=== PATIENT | male | born 1950 | race Caucasian/White ===

== ENCOUNTER 2023-06-08 08:43 | Outpatient (CLI) | payer MEDICARE, OTHER, SELFPAY ==
[2023-06-08 12:18] LABS: Basophils Percent Auto 0.6 % (0.2-1.2); Eosinophils Absolute Auto 0.1 K/mm3 (0-0.3); Eosinophils Percent Auto 1.9 % (0-4.4); Hematocrit 47.1 % (42.0-52.0); Hemoglobin 15.3 g/dL (14.0-18.0); Immature Granulocyte Absolute 0.02 K/mm3 (0.00-0.031); Immature Granulocyte Percent A 0.3 % (0-0.5); Lymphocytes Absolute Auto 2.08 K/mm3 (0.9-3.2); Lymphocytes Percent Auto 30.1 % (18.3-44.2); Mean Corpuscular HGB Conc 32.5 g/dl (32-36); Mean Corpuscular Hemoglobin 32.1 pg (26-34); Mean Corpuscular Volume 98.7 fl (80-100); Mean Platelet Volume 9.9 fl (7.4-10.4); Monocytes Absolute Auto 0.7 K/mm3 (0.1-0.6); Monocytes Percent Auto 9.8 % (2.6-8.5); Neutrophils Percent Auto 57.3 % (45.5-73.1); Platelet Count Result 280 k/mm3 (150-375); Red Blood Count 4.77 M/mm3 (4.6-6.20); Red Cell Distribution Width 12.2 % (11.5-14.5); White Blood Count 6.9 K/mm3 (4.5-10.0)
[2023-06-09 00:07] LABS: Alanine Aminotransferase 34 U/L (6-50); Albumin Level 4.2 g/dL (3.5-5.1); Alkaline Phosphatase 71 U/L (38-126); Anion Gap 6 mmol/L (4-12); Aspartate Amino Transferase 38 U/L (17-59); Bilirubin,Total 0.8 mg/dL (0.2-1.3); Blood Urea Nitrogen 17 mg/dL (9-20); Calcium 9.4 mg/dL (8.4-10.2); Carbon Dioxide 28 mmol/L (22-30); Chloride 105 mmol/L (98-107); Cholesterol 123 mg/dL (0-200); Estimated Glomerular Filt Rate > 60; Glucose 98 mg/dL (65-110); HDL Direct 53 mg/dL; Potassium 4.4 mmol/L (3.4-5.0); Sodium 139 mmol/L (137-145); Triglycerides 67 mg/dL (<150)
[2023-06-09 00:22] LABS: LDL Cholesterol Direct 55 mg/dL
[2023-06-09 00:34] LABS: Hemoglobin A1C 5.2 % (<5.7)
[2023-06-09 00:39] LABS: Prostate Specific Antigen 0.7 ng/mL (< OR = 4.0)
== END 2023-06-08 08:44 | disposition home or self-care (01) ==
PROVIDERS: PCP Family Medicine; Visit Provider Family Medicine
DX: Z12.5 Encounter for screening for malignant neoplasm of prostate (principal); R73.9 Hyperglycemia, unspecified; R53.83 Other fatigue; I63.9 Cerebral infarction, unspecified; Z13.220 Encounter for screening for lipoid disorders; Z13.228 Encounter for screening for other metabolic disorders
CPT/HCPCS: 36415; 80053; 80061; 83036; 84153; 85025; G0103

== ENCOUNTER → 2023-10-03 11:14 | Outpatient (REF) | payer MEDICARE, OTHER, SELFPAY | LOC: ANHLAB 11:14 | PROVIDERS: PCP Family Medicine; Visit Provider Plastic Surgery | DX: C44.311 Basal cell carcinoma of skin of nose (principal) | CPT/HCPCS: 88305 ==

== ENCOUNTER 2023-11-30 13:09 | Emergency (ER) | payer MEDICARE, OTHER, SELFPAY ==
[2023-11-30 13:24] VITALS: BP 139/71; PULSE 62; RESP 18; TEMP 36.6; O2SAT 100
--- NOTE | 2023-11-30 13:40 | ED.EXTPRO ---
HPI - Extremity Problem General Chief complaint: Extremity Injury, Lower Stated complaint: left leg pain Time Seen by Provider: 11/30/23 13:40 Source: patient and RN notes reviewed Mode of arrival: ambulatory Limitations: no limitations History of Present Illness HPI Narrative: 73-year-old male presents with concern for flare-up of sciatica. Reports 3 week history of left sciatic pain radiating to the hip and down the left leg. He reports he has had issues with this in the past. Three weeks ago he stepped awkwardly with the left lower extremity and began having this pain. He denies any direct injury or trauma. He reports he uses a cane at baseline after he had a stroke. He reports he has been alternating Motrin and Aleve with some temporary relief and he has been seeing a chiropractor. He denies loss of bowel or bladder function, perianal anesthesia, abdominal pain, new weakness in any extremity MD Complaint: other (left hip and sciatic pain) Related Data Home Medications Medication Instructions Recorded Confirmed aspirin 81 mg tablet,delayed 81 mg DIRECTED 11/30/23 11/30/23 release (Adult Low Dose Aspirin) Allergies Allergy/AdvReac Type Severity Reaction Status Date / Time bee venom protein (honey bee) Allergy Severe Anaphylactic Verified 10/11/23 11:45 Shock neomycin Allergy Severe swelling Verified 10/11/23 11:45 and burn Review of Systems Review of Systems: CONSTITUTIONAL: Denies malaise, chills, sweats, or fever. CARDIOVASCULAR: Denies chest pain, palpitations, or edema. RESPIRATORY: Denies cough or dyspnea. SKIN: Denies rash or itching, bruising, redness, swelling. MUSCULOSKELETAL: Reports left sciatic, hip pain NEUROLOGIC: Denies numbness, weakness All systems reviewed & are unremarkable except as noted in HPI and below PMFSH Surgical History Surgical History History of laparoscopic cholecystectomy Family History Family History Father Heart disease Mother Breast cancer Sibling Cancer of appendix Daughter Breast cancer Alcoholism Social History Social History Social History: Caffeine- 3 cups of tea daily Smoking status: Current some day smoker Tobacco type: cigars Alcohol intake: current Drinks per week: 1 Substance use: never Do You Feel Safe in your Home?: Yes Lack of Transportation: No Lack of Food: Never True Current Housing: I Have Housing Concerned About Future Housing: No Difficulty Paying Gas/Electric Bills: No Difficulty Paying for Meds: No Currently Unemployed: No Education: High School Diploma/GED Difficulty w/ Childcare or Family Care: No Living arrangements: with family Occupation/Education: retired Spiritual care concerns: No Agree to blood products: Yes Comments At time of signature, agree with nursing past medical, surgical, social and family history. There is no relevant family history pertinent to the presenting complaint Exam Narrative: GENERAL: Well-appearing, well-nourished, and in no acute distress. HEAD: Normocephalic, atraumatic. EYES: PERRLA and EOMI. NECK: Supple. No lymphadenopathy. CHEST: Clear to auscultation. No respiratory distress. HEART: Regular rate and rhythm. Distal pulses palpable and equal, cap refill <3 seconds MUSCULOSKELETAL: Baseline range of motion and strength in all extremities; baseline strength with hip flexion and extension, dorsiflexion and extension, knee flexion and extension, plantar flexion and extension. Baseline sensation in dermatomal distributions with sensitivity to light touch and pain. No midline back tenderness to palpation. No paraspinal tenderness. Transfers from sitting to standing. SKIN: Warm, dry, no rash. NEURO: No focal deficits. Alert and oriented x3. Reflexes intact. Normal gait. PSYCH: Normal mo
== END 2023-11-30 13:54 | disposition home or self-care (01) ==
PROVIDERS: Emergency Provider Nurse Practitioner; PCP Family Medicine
DX: M54.50 Low back pain, unspecified (principal); F17.290 Nicotine dependence, other tobacco product, uncomplicated; Z86.73 Personal history of transient ischemic attack (TIA), and cerebral infarction without residual deficits; Z79.82 Long term (current) use of aspirin
CPT/HCPCS: 99213; G0463

== ENCOUNTER 2024-01-23 07:43 | Outpatient (CLI) | payer MEDICARE, OTHER, SELFPAY ==
--- NOTE | 2024-02-13 13:03 | WPDSLEEPSTUD ---
Sleep Study Date of Study: 01/23/24 Ordering Provider: Elie Trevino DO Interpreting Physician: Ivana Rodriguez DO Sleep Study Type: Split Polysomnogram Height: 1.83 m Weight: 145.15 kg Body Mass Index: 43.4 Neck Circumference (inches): 21 [place]: 18 Reason for Sleep Study Previously diagnosed DENISHA on CPAP. Needs a new CPAP machine as his is > 10 years old Sleep History The patient is a 73-year-old male that had a sleep study ordered by his primary care physician for evaluation of sleep apnea. The patient rarely awakens from sleep short of breath. He rarely awakens at night with heartburn, belching or cough. He frequently snores and is frequently loud enough that others complain. He occasionally has trouble sleeping when he has a cold. He rarely wakes up gasping for air throughout the night. He frequently breathing problems at night observed by himself or others. He denies sweating excessively at night. He denies having heart palpitations or irregular heartbeats during the night. He constantly falls asleep during the day but rarely while driving. He denies sleep paralysis, cataplexy and hypnagogic / hypnopompic hallucinations. He frequently has trouble at school or work due to sleepiness. He denies feeling afraid of going to sleep. He denies having nightmares. He rarely remembers his dreams. He frequently has thoughts racing through his mind. He occasionally feels sad, depressed and anxious. He denies having muscular tension. He denies noticing parts of his body jerk. He denies kicking during the night. He rarely has crawling and aching feelings in his legs and denies having leg pain during the night. He denies grinding his teeth during sleep and denies awakening with morning jaw pain. He is constantly bothered by pain during the day and frequently awakened by pain during the night. He frequently wakes up feeling stiff in the morning. He frequently wakes up with sore or achy muscles. He frequently wakes up with pain in the neck, spine or other joints. He goes to bed at 10:30 p.m. on weekdays and at 11:00 p.m. on the weekends. It takes him 5-10 minutes to fall asleep. He wakes up 5-6 times throughout the night for unknown reasons and it takes him 30 minutes to fall back asleep. He gets 5-1/2-6 hours of sleep per night. He wakes up between 3-5 a.m. on both weekdays and weekends. he currently lives with his , adult daughter and grandson. He denies cauda beverages within 2 hours of bedtime. He denies engaging in physical exercise before bedtime. He will watch television before falling asleep. He will take naps in the afternoon or the evening but they are not refreshing. He denies consuming caffeinated beverages throughout the day. He quit smoking cigarettes several years ago. He does use an unspecified recreational drugs. [facility] Surgical History Surgical History History of laparoscopic cholecystectomy Family History Family History Father Heart disease Mother Breast cancer Sibling Cancer of appendix Daughter Breast cancer Alcoholism Social History Social History Social History: Caffeine- 3 cups of tea daily Smoking status: Current some day smoker Tobacco type: cigars Alcohol intake: current Drinks per week: 1 Substance use: never Do You Feel Safe in your Home?: Yes Lack of Transportation: No Lack of Food: Never True Current Housing: I Have Housing Concerned About Future Housing: No Difficulty Paying Gas/Electric Bills: No Difficulty Paying for Meds: No Currently Unemployed: No Education: High School Diploma/GED Difficulty w/ Childcare or Family Care: No Living arrangements: with family Occupation/Education: retired Spiritual care concerns: No Agree to blood products: Yes Medications Home Medications ?Medication ?Instructions ?Recorded ?Confirmed ?Type olmesartan 20 mg tablet 20 mg PO DAILY #30 tabs 08/25/23 11/30/23 Rx amlodipine 10 mg tablet 10 mg PO DAILY #90 tabs 11/08/23 11/30/23 Rx atorvastatin 40 mg tablet 40 mg PO DAILY #90 tabs 11/08/23 11/30/23 Rx aspirin 81 mg tablet,delayed 81 mg DIRECTED 11/30/23 11/30/23 History release (Adult Low Dose Aspirin) cyclobenzaprine 10 mg tablet 10 mg PO TID PRN muscle spasm #20 11/30/23 Rx tabs prednisone 20 mg tablet 40 mg (2 x 20 mg) PO DAILY 5 days 11/30/23 Rx #10 tabs Sleep Procedure A full night split study using the Circuport multi-channel system recorded the standard physiologic parameters including EEG, EOG, submentalis EMG, anterior tibialis EMG, EKG, body position, nasal and oral airflow using nasal pressure sensor and thermistor.? Respiratory parameters of chest and abdominal movements were recorded with Respiratory Inductance Plethysmography belts. Oxygen saturation was recorded by pulse oximetry. Video monitoring was also performed. Sleep stages, periodic limb movements, and EEG arousals were scored in 30 second epochs according to the criteria of the AASM Scoring Manual. The Apnea-Hypopnea Index was calculated using CMS guidelines for definition of hypopnea with 4% O2 desaturations while scoring respiratory events. Sleep Architecture During the diagnostic portion of the study, the total recording time was 233.3 minutes. The total sleep time was 125.5 minutes. Sleep latency was 16.8 minutes.? REM latency was 44.0 minutes. Sleep Efficiency was 53.8%. The patient had 14 awakenings for an awakening index of 6.7. Wake after sleep onset time was 91.0 minutes. The patient spent 14.5 minutes, 11.6% of total sleep time in Stage N1. The patient spent 74.5 minutes, 59.4% in Stage N2. The patient spent 0.0 minutes, 0.0% in Stage N3. The patient spent 36.5 minutes, 29.1% in Stage REM sleep. At 02:26:49 AM the patient was placed on PAP treatment and was titrated at pressures ranging from 5 cm H20 up to 9 cm H20. During the treatment portion of the study, the total recording time was 231.7 minutes.? The total sleep time was 175.5 minutes. Sleep latency was 24.5 minutes. REM latency was 28.0 minutes. Sleep Efficiency was 75.7%. Wake after Sleep Onset time was 31.5 minutes. The patient spent 13.0 minutes, 7.4% of total sleep time in Stage N1. The patient spent 115.0 minutes, 65.5% in Stage N2. The patient spent 0.0 minutes, 0.0% in Stage N3. The patient spent 47.5 minutes, 27.1% in Stage REM. Respiratory Analysis During the diagnostic portion of the study, the patient had 3 hypopneas, 84 obstructive apneas, 4 mixed apneas, and 3 central apneas for an overall Apnea Hypopnea Index of 44.9 events per hour. The REM Apnea Hypopnea Index was 69.0. The NREM Apnea Hypopnea Index was 35.1. The patient had a Central Apnea Hypopnea Index of 1.4. There was no evidence of Long-Hardy Respirations. During the treatment portion of the study, the patient had 4 hypopneas for an overall Apnea Hypopnea Index of 1.4 events per hour. The REM Apnea Hypopnea Index was 2.5. The NREM Apnea Hypopnea Index was 0.9. The patient had a Central Apnea Hypopnea Index of 0. There was no evidence of Long-Hardy Respirations. The patient was started on CPAP 5 cm H2O and titrated to CPAP 9 cm H2O due to hypopneas. The patient was able to fall asleep starting on CPAP 7 cm H2O. The patient was able to achieve REM sleep starting on CPAP 7 cm H2O. The patient was able to achieve a residual AHI less than 5 with both NREM and REM sleep in the supine position on 7 cm and 9 cm. On CPAP 7 cm H2O, the patient spent 68.5 minutes in NREM and 20.5 minutes in REM with 3 hypopneas, resulting in an AHI of 2.0. On CPAP 9 cm H2O, the patient spent 48 minutes in NREM and 15 minutes in REM with 1 hypopnea, resulting in an AHI of 1.0. The patient had a sleep efficiency of 87.3% on 7 cm H2O and 71.2% on 9 cm H2O. Arousals During the diagnostic portion of the study, there were a total of 90 arousals for an arousal index of 43.0.? There were 42 respiratory arousals for an index of 20.1. There were 32 periodic limb movement arousals for an index of 15.3.? There were 6 isolated limb movement arousals for an index of 2.9. There were 21 spontaneous arousals for an index of 10.0. During the treatment portion of the study, there were a total of 25 arousals for an index of 8.5.? There were 1 respiratory arousals for an index of 0.3. There were 1 periodic limb movement arousals for an index of 0.3.? There were 6 isolated limb movement arousals for an index of 2.1. There were 17 spontaneous arousals for an index of 5.8. Periodic Limb Movements During the diagnostic portion of the study, the patient had 37 isolated limb movements with an index of 17.7. The patient had 116 periodic limb movements with an index of 55.5, which is elevated (normal <15). The patient had a total of 153 limb movements with a total limb movement index of 73.1. During the treatment portion of the study, the patient had 20 isolated limb movements with an index of 6.8. The patient had 58 periodic limb movements with an index of 19.8, which is elevated (normal <15). The patient had a total of 78 limb movements with a total limb movement index of 26.7. Oximetry Data During the diagnostic portion of the study, the patient had an average oxygen saturation of 94.4% in wake with a minimum oxygen saturation of 77% and a maximum oxygen saturation of 100%. The patient had an average oxygen saturation of 93.8% in sleep with a minimum oxygen saturation of 76.0% and a maximum oxygen saturation of 99.0%. The patient had 74 oxygen desaturations resulting in an Oxygen Desaturation Index of 35.4. The patient spent 10.9 minutes, 4.8% of total sleep time with an oxygen saturation less than 88%. During the treatment portion of the study, the patient had an average oxygen saturation of 93.7% in wake with a minimum oxygen saturation of 90.0% and a maximum oxygen saturation of 98.0%. The patient had an average oxygen saturation of 94.1% in sleep with a minimum oxygen saturation of 91.0% and a maximum oxygen saturation of 98.0%. The patient had 6 oxygen desaturations resulting in an Oxygen Desaturation Index of 2.1. The patient spent 0 minutes of total sleep time with an oxygen saturation less than 88%. Snoring Profile Moderate to loud snoring was present in the baseline portion of the study. The snoring resolved once the patient was started on CPAP. Cardiac Profile The EKG lead showed normal sinus rhythm. No arrhythmias or PVCs were seen. During the diagnostic portion of the study, the average pulse rate was 52.2 bpm.? The minimum pulse rate was 45.0 bpm. The maximum pulse rate was 62.0 bpm. During the treatment portion of the study, the average pulse rate was 49.8 bpm.? The minimum pulse rate was 45.0 bpm. The maximum pulse rate was 66.0 bpm. EEG Profile No signs of seizure activity seen. Assessment and Plan Assessment and Plan (1) Obstructive sleep apnea: Code(s): G47.33 - Obstructive sleep apnea (adult) (pediatric) Status: Acute Assessment and Plan: In the baseline portion of the study, the patient had an overall AHI of 44.9 with desaturation down to 76%. This is consistent with severe sleep apnea. The patient was started on CPAP 5 cm H2O and titrated to CPAP 9 cm H2O due to hypopneas. I recommend that the patient be prescribed CPAP 7 cm H2O, size medium Resmed AirFit P30i nasal mask, CPAP filters/tubing and heated humidity. This should be used with all episodes of sleep.? Compliance should be reviewed within 31-90 days of starting therapy for usage greater than 4 hours per night greater than 70% of the nights. The patient should be asked about symptoms such as?excessive daytime sleepiness, quality of sleep, decreased nocturia, increased?mental functioning such as memory, mood, and concentration. While the patient did have a significant number of periodic limb movements during the study, they greatly decreased in frequency once the patient reached the optimal CPAP pressure. I recommend asking the patient about leg movements during his first CPAP Compliance visit. Data The data obtained during this sleep study is adequate for interpretation. Certification This sleep study has been reviewed by a board certified sleep medicine physician.
[2024-02-14 10:42] VITALS: BMI 43.4
== END 2024-01-24 07:05 | disposition home or self-care (01) ==
PROVIDERS: PCP Family Medicine; Visit Provider Family Medicine
DX: G47.33 Obstructive sleep apnea (adult) (pediatric) (principal)
CPT/HCPCS: 95811

== ENCOUNTER 2024-05-30 09:08 | Outpatient (CLI) | payer MEDICARE, OTHER, SELFPAY ==
--- OUTSIDE RECORDS SUMMARY | 2024-05-30 09:44 | XMS_ITS | Encounter Summary ---
Author Organization [facility] Address [facility] [place] [address] Care Team Providers Care Risk Developer Name Role Phone John Murillo MD Primary Care Provider [phone] Encounter Details Date Type Department Care Team (Latest Contact Info) Description 01/10/2018 Abstract [facility] , Blayne Pérez MD Social History Tobacco Use Types Packs/Day Years Used Date Smoking Tobacco: Never Assessed Sex and Gender Information Value Date Recorded Sex Assigned at Not on file Legal Sex Male 7:01 PM CDT Gender Identity Not on file Sexual Orientation Not on file documented as of this encounter Plan of Treatment Not on file documented as of this encounter Visit Diagnoses Not on filedocumented in this encounter Additional Health Concerns Infection Onset Date Last Indicated Resolved Time COVID-19 Rule Out 08/16/2021 08/16/2021 08/16/2021 7:32 AM CDT documented as of this encounter Care Teams Risk Developer Relationship Specialty Start Date End Date John Murillo MD [address] [id number] PCP - General FAMILY PRACTICE 09/20/18 documented as of this encounter
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
--- OUTSIDE RECORDS SUMMARY | 2024-05-30 09:44 | XMS_ITS | Clinical Summary ---
Author Organization [facility] Address [address] [place] [address] Care Team Providers Care Ocean Biologist Name Role Phone John Murillo MD Primary Care Provider Source Comments [facility],non-owned Affiliates and Associated Physician Practices is amultiple site organization consisting of ambulatory clinics and hospital sitesin [place], [place], [place] and [place]. This disclosure is being madepursuant to the Care Everywhere program and may not contain all information available regarding this patient. Last updated 17.[facility] Allergies Active Allergy Reactions Criticality Noted Date Comments Insect Extract Other 01/12/2018 Pt allergic to bees Medications Be aware that medications may not be up to date on this document. Always verify current medications with the patient. No known medications Social History Tobacco Use Types Packs/Day Years Used Date Smoking Tobacco: Every Day Cigarettes Alcohol Use Standard Drinks/Week Comments Yes 0 (1 standard drink = 0.6 oz pur e alcohol) social Sex and Gender Information Value Date Recorded Sex Assigned at Not on file Gender Identity Not on file Sexual Orientation Not on file Last Filed Vital Signs Vital Sign Reading Time Taken Comments Blood Pressure 179/79 01/12/2018 3:00 PM READINESS PARAPROFESSIONAL Pulse 62 01/12/2018 3:00 PM READINESS PARAPROFESSIONAL Temperature 36.7 C (98.1 F) 01/12/2018 11:36 AM READINESS PARAPROFESSIONAL Respiratory Rate 14 01/12/2018 3:00 PM READINESS PARAPROFESSIONAL Oxygen Saturation 100% 01/12/2018 3:00 PM READINESS PARAPROFESSIONAL Inhaled Oxygen Concentration - - Weight 163.3 kg (360 lb) 01/12/2018 12:20 PM READINESS PARAPROFESSIONAL Height 182.9 cm (6') 01/12/2018 12:20 PM READINESS PARAPROFESSIONAL Body Mass Index 48.82 01/12/2018 12:20 PM READINESS PARAPROFESSIONAL Plan of Treatment Health Maintenance Due Date Last Done Comments COLOGUARD (AGES 45-75) - COL ON CA SCREENING 1952 COLON MONITORING 1952 COLONOSCOPY - COLON CA SCREENING 1952 CT COLONOGRAPHY - COLON CA SCREENING 1952 Colorectal Cancer Screening 1952 FIT - COLON CA SCREENING 1952 FLEX SIG - COLON CA SCREENING 1952 LIPID TESTING 1952 MEDICARE AWV 12 MONTHS 1952 HEPATITIS C SCREENING 08/22/1970 DTAP/TDAP/TD VACCINES (1 - Tdap) 08/27/1971 PNEUMOCOCCAL VACCINE 50+ (1 of 2 - PCV) 08/27/1971 ZOSTER VACCINE (1 of 2) 2002 Respiratory Syncytial Virus (RSV) Vaccine Pt: or over 60 yrs (1 - Risk 60-74 years 1-dose series) 2012 AAA SCREENING 2017 COVID-19 VACCINE ( - 2023-2 5 season) 2023 INFLUENZA VACCINE (#1) 2023 DEPRESSION SCREENING 03/07/2024 HEPATITIS B VACCINE Aged Out No longe r eligible based on patient's age to complete this topic HIB VACCINE Aged Out No longer eligi ble based on patient's age to complete this topic HPV VACCINE Aged Out No longer eligi ble based on patient's age to complete this topic MENINGOCOCCAL (Group B) VACC INE SHARED DECISION-MAKING Aged Out No longer eligibl e based on patient's age to complete this topic MENINGOCOCCAL GROUPS A/C/Y/W VACCINE Aged Out No longer eligible b ased on patient's age to complete this topic Care Teams Ocean Biologist Relationship Specialty Start Date End Date John Murillo MD [address] [phone] PCP - General Family Medicine 01/12/18
[2024-05-30 18:45] LABS: Basophils Percent Auto 0.6 % (0.2-1.2); Eosinophils Absolute Auto 0.2 K/mm3 (0-0.3); Eosinophils Percent Auto 2.2 % (0-4.4); Hematocrit 44.8 % (42.0-52.0); Hemoglobin 14.7 g/dL (14.0-18.0); Immature Granulocyte Absolute 0.02 K/mm3 (0.00-0.031); Immature Granulocyte Percent A 0.3 % (0-0.5); Lymphocytes Absolute Auto 1.98 K/mm3 (0.9-3.2); Lymphocytes Percent Auto 27.8 % (18.3-44.2); Mean Corpuscular HGB Conc 32.8 g/dl (32-36); Mean Corpuscular Volume 97.6 fl (80-100); Mean Platelet Volume 9.6 fl (7.4-10.4); Monocytes Absolute Auto 0.7 K/mm3 (0.1-0.6); Monocytes Percent Auto 10.4 % (2.6-8.5); Neutrophils Absolute Auto 4.2 K/mm3 (1.3-6.7); Neutrophils Percent Auto 58.7 % (45.5-73.1); Platelet Count Result 288 k/mm3 (150-375); Red Blood Count 4.59 M/mm3 (4.6-6.20); White Blood Count 7.1 K/mm3 (4.5-10.0)
[2024-05-30 19:55] LABS: Vitamin D 25 Hydroxy 24.8 ng/mL
[2024-05-30 20:03] LABS: Alanine Aminotransferase 29 U/L (6-50); Albumin Level 4.2 g/dL (3.5-5.1); Alkaline Phosphatase 74 U/L (38-126); Anion Gap 7 mmol/L (4-12); Aspartate Amino Transferase 41 U/L (17-59); Bilirubin,Total 0.9 mg/dL (0.2-1.3); Blood Urea Nitrogen 16 mg/dL (9-20); Calcium 9.2 mg/dL (8.4-10.2); Carbon Dioxide 28 mmol/L (22-30); Chloride 104 mmol/L (98-107); Cholesterol 121 mg/dL (0-200); Estimated Glomerular Filt Rate > 60; Glucose 95 mg/dL (65-110); HDL Direct 51 mg/dL; Potassium 4.1 mmol/L (3.4-5.0); Sodium 139 mmol/L (137-145); Triglycerides 97 mg/dL (<150)
[2024-05-30 20:13] LABS: LDL Cholesterol Direct 35 mg/dL
[2024-05-30 21:44] LABS: Hemoglobin A1C 5.2 % (<5.7)
== END 2024-05-30 09:09 | disposition home or self-care (01) ==
LOC: ANHGOSHLAB 09:09
PROVIDERS: PCP Emergency Medicine; Visit Provider Emergency Medicine
DX: E29.1 Testicular hypofunction (principal); E55.9 Vitamin D deficiency, unspecified; I10 Essential (primary) hypertension; E11.9 Type 2 diabetes mellitus without complications; R53.83 Other fatigue
CPT/HCPCS: 36415; 80053; 80061; 82306; 83036; 84402; 84403; 84443; 85025

== ENCOUNTER 2024-09-03 12:02 | Outpatient (CLI) | payer MEDICARE, OTHER, SELFPAY ==
--- NOTE | ~2024-09-03 | XR_ITS ---
Right Hand Technique: PA, oblique, and lateral views were obtained. Clinical History: Pain Findings: No acute fracture or dislocation is seen. Osseous alignment is anatomic. Joint spaces are p reserved. Soft tissues are unremarkable. Impression: Unremarkable right hand. Reviewed, dictated and finalized at location M. Impression: Unremarkable right hand.
--- OUTSIDE RECORDS SUMMARY | 2024-09-03 12:07 | XMS_ITS | Clinical Summary ---
Author Organization [facility] Address [address] [place] [address] Care Team Providers Care Apparel Stock Checker Name Role Phone John Murillo MD Primary Care Provider Source Comments [facility],non-owned Affiliates and Associated Physician Practices is amultiple site organization consisting of ambulatory clinics and hospital sitesin [place], [place], [place] and [place]. This disclosure is being madepursuant to the Care Everywhere program and may not contain all information available regarding this patient. Last updated 17.[facility] Allergies Active Allergy Reactions Criticality Noted Date Comments Insect Extract Other 01/12/2018 Pt allergic to bees Medications * Be aware that medications may not be up to date on this document. Alwaysverify current medications with the patient. No known medications Social History Tobacco Use Types Packs/Day Years Used Date Smoking Tobacco: Every Day Cigarettes Alcohol Use Standard Drinks/Week Comments Yes 0 (1 standard drink = 0.6 oz pur e alcohol) social Sex and Gender Information Value Date Recorded Sex Assigned at Not on file Legal Sex Male 6:23 AM RELAY WORKER Gender Identity Not on file Sexual Orientation Not on file Last Filed Vital Signs Vital Sign Reading Time Taken Comments Blood Pressure 179/79 01/12/2018 3:00 PM RELAY WORKER Pulse 62 01/12/2018 3:00 PM RELAY WORKER Temperature 36.7 C (98.1 F) 01/12/2018 11:36 AM RELAY WORKER Respiratory Rate 14 01/12/2018 3:00 PM RELAY WORKER Oxygen Saturation 100% 01/12/2018 3:00 PM RELAY WORKER Inhaled Oxygen Concentration - - Weight 163.3 kg (360 lb) 01/12/2018 12:20 PM RELAY WORKER Height 182.9 cm (6') 01/12/2018 12:20 PM RELAY WORKER Body Mass Index 48.82 01/12/2018 12:20 PM RELAY WORKER Plan of Treatment Health Maintenance Due Date [...] series) 2012 AAA SCREENING 2017 COVID-19 VACCINE (1 - 2023-2 5 season) 2023 DEPRESSION SCREENING 03/07/2024 INFLUENZA VACCINE (Season Ended) 2024 HEPATITIS B VACCINE Aged Out No longe [...] on patient's age to complete this topic Insurance MEDICARE * Guarantor: DIETER MENDOZA Account Type Relation to Patient Date of Phone Billing Address Personal/Family [address] [place] [address] MEDICARE [facility] * Guarantor: DIETER MENDOZA Account Type Relation to Patient Date of Phone Billing Address Personal/Family [address] [place] [address] MEDICARE [facility] RISK * Guarantor: DIETER MENDOZA Account Type Relation to Patient Date of Phone Billing Address Personal/Family [address] [place] [address] MEDICARE [facility] RISK TP THIRD [employer] MEDICARE COMMERCIAL GENERIC Care Teams Apparel Stock Checker Relationship Specialty Start Date End Date John Murillo MD [address] [phone] PCP - General Family Medicine 01/12/18
--- OUTSIDE RECORDS SUMMARY | 2024-09-03 12:07 | XMS_ITS | Clinical Summary ---
Author Organization [facility] Address [address] [place] [address] Care Team Providers Care Residential Collections Name Role Phone John Murillo MD Primary Care Provider [phone]- [phone] Allergies Active Allergy Reactions Criticality Noted Date Comments Bee Venom Unknown 11/08/2013 Tape Rash Low 06/17/2021 Medications aspirin EC 81 MG tablet Take 81 mg by mouth nightly at bedtime. Active atorvastatin (LIPITOR) 40 MG tabletIndications :Cerebrovascular accident (CVA), unspecified mechanism ([facility]) Take 1 tablet (40 mg total) by [...] Cholecystitis 08/16/2021 Essential hypertension 07/22/2021 Left hemiparesis ([facility] H[facility]/HCC) 07/22/2021 Cerebrovascular disease 06/17/2021 Age-related cataract [...] a health care facility 08/01/2012 03/22/2022 Immunizations Immunization Administration Dates Next Due Flublok (Quadrivalent) 03/17/2022 [...] Height 182.9 cm (6') 03/17/2022 12:57 PM MEASUREMENT AND VERIFICATION ENGINEER Body Mass Index 43.13 03/17/2022 12:57 PM MEASUREMENT AND VERIFICATION ENGINEER Plan of Treatment Health Maintenance Due Date Last Done Comments Hepatitis C 1970 Pneumococcal Vaccine: 50+ Years (1 of 1 - PCV) 2002 Zoster Vaccines (1 of 2) 2002 RSV Immunization or 60+ Years (1 - Risk 60-74 years 1-dose series) 2012 DTaP, Tdap and Td Vaccines ( 2 - Td or Tdap) 09/01/2021 09/02/2011 Annual Medicare Wellness Visit 03/18/2023 03/17/2022 COVID-19 Vaccine (4 - 2023-2 5 season) 2023 02/16/2021, 05/24/2020, 05/04/2020 Colorectal Cancer Screening Colonoscopy (10 Years) 03/27/2031 [...] Recently Relevant to Health Maintenance Insurance [place]IC[place] [facility] [place] [facility] [place] Advance Directives * Full Code (Latest Code Status on File) Date Activated Date Inactivated Comments 08/16/2021 9:07 AM 08/17/2021 4:39 PM * Full Code Date Activated Date Inactivated Comments 06/17/2021 9:56 PM 06/21/2021 4:26 PM Care Teams Residential Collections Relationship Specialty Start Date End Date John Murillo MD [address] [id number] PCP - General FAMILY PRACTICE 09/20/18
--- OUTSIDE RECORDS SUMMARY | 2024-09-03 12:07 | XMS_ITS | Encounter Summary ---
Author Organization [facility] Address [facility] [place] [address] Care Team Providers Care Motor Adjuster Name Role Phone John Murillo MD Primary Care Provider [phone]- [phone] Encounter Details Date Type Department Care Team (Latest Contact Info) Description 01/10/2018 Abstract [facility] , Blayne Pérez MD Social [...] documented as of this encounter Care Teams Motor Adjuster Relationship Specialty Start Date End Date John Murillo MD [address] [phone] PCP - General FAMILY PRACTICE 09/20/18 documented as of this encounter
== END 2024-09-03 12:03 | disposition home or self-care (01) ==
PROVIDERS: PCP Emergency Medicine; Visit Provider Emergency Medicine
DX: M79.641 Pain in right hand (principal)
CPT/HCPCS: 73120

== ENCOUNTER 2024-11-26 08:43 | Outpatient (CLI) | payer MEDICARE, OTHER, SELFPAY ==
--- OUTSIDE RECORDS SUMMARY | 2024-11-26 09:22 | XMS_ITS | Clinical Summary ---
Author Organization [facility] Address [address] [place] [address] Care Team Providers Care Media Producer Name Role Phone John Murillo MD Primary Care Provider +1- [phone] Allergies Active Allergy Reactions Criticality Noted Date Comments Bee Venom Unknown 11/08/2013 Tape Rash Low 06/17/2021 Medications aspirin EC 81 MG tablet Take 81 mg by mouth nightly at bedtime. Active atorvastatin (LIPITOR) 40 MG tabletIndications :Cerebrovascular accident (CVA), unspecified mechanism ([facility]) Take 1 tablet (40 mg total) by [...] Cholecystitis 08/16/2021 Essential hypertension 07/22/2021 Left hemiparesis ([facility]/HCC) 07/22/2021 Cerebrovascular disease 06/17/2021 Age-related cataract [...] Height 182.9 cm (6') 03/17/2022 12:57 PM PULMONOLOGIST Body Mass Index 43.13 03/17/2022 12:57 PM PULMONOLOGIST Plan of Treatment Health Maintenance Due Date [...] Visit 03/18/2023 03/17/2022 COVID-19 Vaccine (4 - 2024-2 6 season) 2024 02/16/2021, 05/24/2020, 05/04/2020 Colorectal Cancer Screening Colonoscopy [...] Recently Relevant to Health Maintenance Insurance MEDICARE [facility] MEDICARE [facility] Advance Directives * Full Code (Latest Code Status on File) Date Activated Date Inactivated Comments 08/16/2021 9:07 AM 08/17/2021 4:39 PM * Full Code Date Activated Date Inactivated Comments 06/17/2021 9:56 PM 06/21/2021 4:26 PM Care Teams Media Producer Relationship Specialty Start Date End Date John Murillo MD [address] [phone] PCP - General FAMILY PRACTICE 09/20/18
--- OUTSIDE RECORDS SUMMARY | 2024-11-26 09:22 | XMS_ITS | Clinical Summary ---
Author Organization [facility] Address [address] [place] [address] Care Team Providers Care Facsimile Operator Name Role Phone John Murillo MD Primary Care Provider Source Comments [facility],non-owned Affiliates and Associated Physician Practices is amultiple site organization consisting of ambulatory clinics and hospital sitesin [place], [place], [place] and [place]. This disclosure is being madepursuant to the Care Everywhere program and may not contain all information available regarding this patient. Last updated 17.[facility] Allergies Active Allergy Reactions Criticality Noted Date [...] on file Legal Sex Male 6:23 AM ACCESS DIRECTOR Gender Identity Not on file Sexual Orientation Not on file Last Filed Vital Signs Vital Sign Reading Time Taken Comments Blood Pressure 179/79 01/12/2018 3:00 PM ACCESS DIRECTOR Pulse 62 01/12/2018 3:00 PM ACCESS DIRECTOR Temperature 36.7 C (98.1 F) 01/12/2018 11:36 AM ACCESS DIRECTOR Respiratory Rate 14 01/12/2018 3:00 PM ACCESS DIRECTOR Oxygen Saturation 100% 01/12/2018 3:00 PM ACCESS DIRECTOR Inhaled Oxygen Concentration - - Weight 163.3 kg (360 lb) 01/12/2018 12:20 PM ACCESS DIRECTOR Height 182.9 cm (6') 01/12/2018 12:20 PM ACCESS DIRECTOR Body Mass Index 48.82 01/12/2018 12:20 PM ACCESS DIRECTOR Plan of Treatment Health Maintenance Due Date [...] years 1-dose series) 2012 AAA SCREENING 2017 DEPRESSION SCREENING 03/07/2024 COVID-19 VACCINE (1 - 2023-2 5 season) 2024 INFLUENZA VACCINE (#1) 2024 HEPATITIS B VACCINE Aged Out No [...] Phone Billing Address Personal/Family [address] [place] [address] MEDICARE [facility] Address: [address] [address] ATTN [facility] [place] [address] * Guarantor: DIETER MENDOZA Account Type Relation to Patient Date of Phone Billing Address Personal/Family [address] [place] [address] MEDICARE [facility] [place] [facility] RISK * Guarantor: DIETER MENDOZA Account Type Relation to Patient Date of Phone Billing Address Personal/Family [address] [place] [address] MEDICARE [facility] RISK TP THIRD [employer] LIABILITY MEDICARE COMMERCIAL GENERIC Care Teams Facsimile Operator Relationship Specialty Start Date End Date John Murillo MD [address] [phone] PCP - General Family Medicine 01/12/18
--- OUTSIDE RECORDS SUMMARY | 2024-11-26 09:22 | XMS_ITS | Encounter Summary ---
Author Organization [facility] Address [facility] [place] [address] Care Team Providers Care Instrument And Controls Technician Name Role Phone John Murillo MD Primary Care Provider [phone]- [phone] Encounter Details Date Type Department Care Team (Latest Contact Info) Description 01/10/2018 Abstract [facility] , Blayne Pérez [...] documented as of this encounter Care Teams Instrument And Controls Technician Relationship Specialty Start Date End Date John Murillo MD [address] [phone] PCP - General FAMILY PRACTICE 09/20/18 documented as of this encounter
[2024-11-26 13:06] LABS: Alanine Aminotransferase 31 U/L (6-50); Albumin Level 4.1 g/dL (3.5-5.1); Alkaline Phosphatase 83 U/L (38-126); Anion Gap 7 mmol/L (4-12); Aspartate Amino Transferase 50 U/L (17-59); Bilirubin,Total 0.7 mg/dL (0.2-1.3); Blood Urea Nitrogen 15 mg/dL (9-20); Calcium 9.4 mg/dL (8.4-10.2); Carbon Dioxide 26 mmol/L (22-30); Chloride 105 mmol/L (98-107); Cholesterol 119 mg/dL (0-200); Estimated Glomerular Filt Rate > 60; Glucose 90 mg/dL (65-110); HDL Direct 46 mg/dL; Potassium 4.0 mmol/L (3.4-5.0); Sodium 138 mmol/L (137-145); Total Protein 7.6 g/dL (6.3-8.2); Triglycerides 66 mg/dL (<150)
[2024-11-26 13:44] LABS: Prostate Specific Antigen 1.0 ng/mL (< OR = 4.0); Thyroid Stimulating Hormone 2.070 uIU/mL (0.465-4.680)
== END 2024-11-26 08:44 | disposition home or self-care (01) ==
PROVIDERS: PCP Emergency Medicine; Visit Provider Emergency Medicine
DX: E78.5 Hyperlipidemia, unspecified (principal); E55.9 Vitamin D deficiency, unspecified; R53.83 Other fatigue; Z12.5 Encounter for screening for malignant neoplasm of prostate
CPT/HCPCS: 36415; 80053; 80061; 82306; 84153; 84443; G0103